=== PATIENT | female | born 1985 | race Caucasian/White ===

== ENCOUNTER 2016-07-24 14:06 | Emergency (ER) | payer MEDICARE, MEDICAID ==
[2016-07-24 14:20] VITALS: BP 128/88; PULSE 83; RESP 18; TEMP 98.3; O2SAT 97
--- NOTE | 2016-07-24 14:53 | RAD ---
PROCEDURE: Right Thumb radiographs. HISTORY: no injury, Fall 10 yrs ago COMPARISON: None available TECHNIQUE: AP radiograph of the right hand, as well as spot oblique and lateral images of thumb were obtained. FINDINGS: RIGHT THUMB: Unremarkable right 1st digit, without acute displaced fracture. Remainder of the right hand (as seen on the AP view) grossly unremarkable. JOINTS: No dislocation. SOFT TISSUES: Unremarkable. No evidence of radiopaque foreign body. OTHER FINDINGS: None. IMPRESSION: Unremarkable right 1st digit radiographs as above.
--- NOTE | 2016-07-24 15:05 | C.PDOC ---
History Of Present Illness 31 yr old female presents to the ER with complaints of right hand, thumb pain. Patient reports she had a injury to the thumb 10 years ago but no recent injury and is requesting an Xray. Patient is a psych patient. Patient denies arm pain, shoulder pain, back pain, weakness or numbness. Time Seen by Provider: 07/24/16 14:30 Chief Complaint (Nursing): Finger,Hand,&Wrist History Per: Patient History/Exam Limitations: no limitations Onset/Duration Of Symptoms: Persistent Current Symptoms Are (Timing): Still Present Past Medical History Reviewed: Historical Data, Nursing Documentation, Vital Signs Vital Signs: Last Vital Signs Temp 98.3 F 07/24/16 14:20 Pulse 83 07/24/16 14:20 Resp 18 07/24/16 14:20 BP 128/88 07/24/16 14:20 Pulse Ox 97 07/24/16 15:05 Family History: States: No Known Family Hx - Social History Hx Alcohol Use: No Hx Substance Use: No - Immunization History Hx Tetanus Toxoid Vaccination: No Hx Influenza Vaccination: No Hx Pneumococcal Vaccination: No Review Of Systems Except As Marked, All Systems Reviewed And Found Negative. Musculoskeletal: Positive for: Other ((+) Right hand, thumb pain ). Negative for: Shoulder Pain, Arm Pain, Back Pain Neurological: Negative for: Weakness, Numbness Physical Exam - Physical Exam Appears: Well, Non-toxic, No Acute Distress Skin: Warm, Dry, No Rash Head: Atraumatic, Normacephalic Oral Mucosa: Moist Chest: Symmetrical, No Tenderness Cardiovascular: Rhythm Regular, No Murmur Extremity: Normal ROM, No Tenderness, Capillary Refill (<2), No Deformity, No Swelling Neurological/Psych: Oriented x3, Normal Speech, Normal Motor ED Course And Treatment O2 Sat by Pulse Oximetry: 97 - Other Rad X-Ray - Right Hand X-Ray: Viewed By Me, Read By Radiologist Interpretation: IMPRESSION: Unremarkable right 1st digit radiographs as above. Medical Decision Making Medical Decision Making: PLAN: * X-Ray - Right Hand * Motrin PO NOTE: mild discomfort no trauma, normal exam and x-ray Disposition Doctor Will See Patient In The: Office Counseled Patient/Family Regarding: Studies Performed, Diagnosis - Disposition Referrals: [facility] [Outside] Disposition: HOME/ ROUTINE Disposition Time: 15:04 Condition: GOOD Additional Instructions: continue ice packs 1/2 hour per hour, motrin 400 mg every 6 hours as needed. Follow-up in our Clinic as needed Instructions: Finger Sprain (ED) - Clinical Impression Clinical Impression: Finger sprain - Scribe Statement The provider has reviewed the documentation as recorded by the Thomasibrober Horton Provider Attestation: All medical record entries made by the Felice were at my direction and personally dictated by me. I have reviewed the chart and agree that the record accurately reflects my personal performance of the history, physical exam, medical decision making, and the department course for this patient. I have also personally directed, reviewed, and agree with the discharge instructions and disposition.
== END 2016-07-24 15:21 | disposition home or self-care (01) ==
LOC: C.ER 14:06
DX: S63.601A Unspecified sprain of right thumb, initial encounter (principal); X58.XXXA Exposure to other specified factors, initial encounter

== ENCOUNTER 2017-06-26 15:05 | Emergency (ER) | payer MEDICARE, MEDICAID ==
[2017-06-26 15:20] VITALS: BP 107/73; PULSE 83; RESP 20; TEMP 97.9; O2SAT 99
--- NOTE | 2017-06-26 15:30 | C.PDOC ---
History Of Present Illness Patient is a 32 y/o female with previous psychiatry history, who presents complaining of a headache since this morning. She attributes symptoms to construction outside. Headache began with gradual onset, and is mild in nature. Denies any fevers, chills, visual changes, neck pain or stiffness. No other complaints at this time. Time Seen by Provider: 06/26/17 15:13 Chief Complaint (Nursing): Headache History Per: Patient History/Exam Limitations: no limitations Onset/Duration Of Symptoms: Hrs Current Symptoms Are (Timing): Still Present Severity: Mild Preceeding Symptoms: None Past Medical History Reviewed: Historical Data, Nursing Documentation, Vital Signs Vital Signs: Last Vital Signs Temp 97.9 F 06/26/17 15:15 Pulse 83 06/26/17 15:15 Resp 20 06/26/17 15:15 BP 107/73 06/26/17 15:15 Pulse Ox 99 06/26/17 15:49 - Medical History Other PMH: ADHD Surgical History: No Surg Hx Family History: States: Unknown Family Hx - Social History Hx Alcohol Use: No Hx Substance Use: No - Immunization History Hx Tetanus Toxoid Vaccination: No Hx Influenza Vaccination: No Hx Pneumococcal Vaccination: No Review Of Systems Except As Marked, All Systems Reviewed And Found Negative. Constitutional: Negative for: Fever, Chills, Weakness Eyes: Negative for: Vision Change Gastrointestinal: Negative for: Nausea, Vomiting Musculoskeletal: Negative for: Neck Pain Neurological: Positive for: Headache. Negative for: Dizziness Physical Exam - Physical Exam Appears: Well, No Acute Distress, Other (playing game on phone during examination) Skin: Normal Color, Warm, Dry Head: Atraumatic, Normacephalic Eye(s): bilateral: Normal Inspection, PERRL, EOMI Ear(s): Bilateral: Normal Nose: Normal Oral Mucosa: Moist Neck: Normal ROM, No Midline Cervical Tenderness, No Paracervical Tenderness, Supple Chest: Symmetrical Cardiovascular: Rhythm Regular Respiratory: Normal Breath Sounds, No Accessory Muscle Use Extremity: Bilateral: Atraumatic, Normal Color And Temperature, Normal ROM Neurological/Psych: Oriented x3, Normal Speech, No Other (focal deficits) ED Course And Treatment O2 Sat by Pulse Oximetry: 99 (RA) Pulse Ox Interpretation: Normal Medical Decision Making Medical Decision Making: Impression: 32 y/o F with headache, well appearing. Time: 15:28 Plan: --Tylenol 975 mg PO --Reassessment Patient states she does not wish to wait for any reassessment. She is requesting medication and to be discharged immediately. refusing for an er workup/urine./ucg/reassessment. Disposition Counseled Patient/Family Regarding: Diagnosis, Need For Followup - Disposition Referrals: Shawn Helton MD [Staff Provider] - Disposition: HOME/ ROUTINE Disposition Time: 15:29 Condition: STABLE Additional Instructions: return to er with worsening symptoms or concerns. Instructions: Headache, Adult (DC) Forms: [employer] (Pashto) - POA Present On Arrival: None - Clinical Impression Clinical Impression: Headache - Scribe Statement The provider has reviewed the documentation as recorded by the Scribe (Cassy Alvarez) Provider Attestation: All medical record entries made by the Scribe were at my direction and personally dictated by me. I have reviewed the chart and agree that the record accurately reflects my personal performance of the history, physical exam, medical decision making, and the department course for this patient. I have also personally directed, reviewed, and agree with the discharge instructions and disposition.
== END 2017-06-26 15:37 | disposition home or self-care (01) ==
LOC: C.ER 15:05
DX: R51 Headache (principal)

== ENCOUNTER 2018-03-02 20:51 | Emergency (ER) | payer MEDICAID, MEDICARE ==
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
[2018-03-02 22:06] LABS: BASO # 0.1 K/uL (0.0-0.2); BASO % 0.7 % (0.0-2.0); EOS # 0.2 K/uL (0.0-0.7); EOS % 1.8 % (0.0-4.0); HEMOGLOBIN 11.9 g/dL (11.0-16.0); LYMPH # 2.5 K/uL (1.0-4.3); LYMPH % 23.1 % (20.0-40.0); MEAN CORPUSCULAR HGB CONC 33.3 g/dL (33.0-37.0); MEAN PLATELET VOLUME 7.7 fL (7.2-11.7); MONO # 0.5 K/uL (0.0-0.8); MONO % 4.9 % (0.0-10.0); NEUT # 7.6 K/uL (1.8-7.0); NEUT % 69.5 % (50.0-75.0); RBC 4.09 Mil/uL (3.80-5.20); RED CELL DISTRIBUTION WIDTH 14.4 % (11.5-14.5); WHITE BLOOD COUNT 10.9 K/uL (4.8-10.8)
[2018-03-02 22:18] LABS: HCG,QUALITATIVE URINE NEGATIVE (NEGATIVE)
[2018-03-02 22:22] LABS: BLOOD UREA NITROGEN 13 mg/dL (7-17); CALCIUM 9.4 mg/dl (8.6-10.4); GFR NON-AFRICAN AMERICAN > 60
[2018-03-02 22:24] LABS: SQUAMOUS EPITHIAL 10 /hpf (0-5); URINE BACTERIA RARE (<OCC); URINE BILIRUBIN NEGATIVE (NEGATIVE); URINE BLOOD NEGATIVE (NEGATIVE); URINE CALCIUM OXALATE CRYSTALS OCC /hpf (<OCC); URINE CLARITY Hazy (Clear); URINE COLOR Yellow (YELLOW); URINE GLUCOSE (UA) NORMAL (Normal); URINE LEUKOCYTE ESTERASE NEG Leu/uL (Negative); URINE PROTEIN NEGATIVE (NEGATIVE)
[2018-03-02 22:33] LABS: BARBITURATES, UR NEGATIVE (NEGATIVE); BENZODIAZEPINES, UR NEGATIVE (NEGATIVE); OPIATES, UR NEGATIVE (NEGATIVE); PHENCYCLIDINE, UR NEGATIVE (NEGATIVE)
[2018-03-03 00:46] VITALS: BP 118/77; PULSE 85; RESP 20; TEMP 98.3; O2SAT 97
== END 2018-03-03 00:46 | disposition home or self-care (01) ==
LOC: C.ER 20:51
DX: F41.9 Anxiety disorder, unspecified (principal)
CPT/HCPCS: 80048; 81001; 82948; 84703; 85025; 99283; G0480